=== PATIENT | female | born 1975 | race Caucasian/White ===

== ENCOUNTER 2021-08-26 00:52 | Inpatient (IN) | payer MEDICAID, SELFPAY ==
[2021-08-26] VITALS (7 sets, daily range): BP systolic 88–186; BP diastolic 56–119; PULSE 85–110; RESP 15–18; TEMP 36.1–37.2; O2SAT 96–100; BMI 22.4
--- NOTE | 2021-08-26 01:12 | ECG_ITS ---
[facility] Test Date: 2021-08-26 Pat Name: Irene Jimenez Department: Room: 152 Gender: Female Budget Technician: : 1975 Requested By: Mayela Lester Order Number: [id number] Sherron MD: Magnolia Poon M.D. Measurements Intervals Wood Rate: 95 P: 68 DC: 144 QRS: 44 QRSD: 77 T: 48 QT: 374 QTc: 472 Interpretive Statements SINUS RHYTHM INTERPRETATION BASED ON A DEFAULT AGE OF 40 YEARS No previous ECG available for comparison Electronically Signed On 08-26-2021 23:42:05 CDT by Magnolia Poon M.D. [id number]
[2021-08-26 01:17] LABS: Basophils # 0.1 10^3/uL (0.0-0.1); Basophils % 0.7 %; Eosinophils # 0.4 10^3/uL (0.0-0.8); Eosinophils % 2.1 %; Hematocrit 39.6 % (37.0-47.0); Hemoglobin 11.5 g/dL (11.5-15.3); Lymphocytes # 3.2 10^3/uL (0.8-4.8); Lymphocytes % 18.4 %; Mean Corpuscular Volume 72.3 fl (81-99); Mean Platelet Volume 9.9 fL (7.4-10.4); Monocytes # 1.7 10^3/uL (0.2-0.9); Monocytes % 9.9 %; Neutrophils % 68.4 %; Nucleated Red Blood Cells % 0 %; Platelet Count 462 10^3/cmm (130-400); Red Blood Count 5.48 10^6/uL (4.1-5.3); White Blood Count 17.1 10^3/uL (4.0-10.0)
[2021-08-26] MEDS: LORazepam 2 mg/mL INJ 1 mL IVP (01:30)
[2021-08-26] MEDS: sodium chloride 0.9% 1,000 ML 999 ML IV (01:30)
--- NOTE | 2021-08-26 01:30 | W.ED.PSYCH ---
HPI - Psych General: Chief Complaint: Psychiatric Symptoms Stated Complaint: MHE Time Seen by Provider: 08/26/21 00:52 Source: EMS Mode of arrival: EMS Limitations: no limitations History of Present Illness: HPI Narrative: 46-year-old female who states she has been having extreme anxiety. History is difficult to get from patient she is extremely anxious and having a panic attack. She threw herself on the ground and states that she believes there is a stream of energy trying to catch up with her that is going to kill her. She denies any drug use denies any suicidality. She denies any worsening improving factors. She has no chest pain she is tachycardic here. Review of Systems Const: Denies: fever(s), chills, body aches or change in appetite Eyes: Denies: blurry vision or eye discomfort ENMT: Denies: throat pain or dental pain Card: Reports: palpitations Resp: Denies: dyspnea GI: Denies: abdominal pain, nausea, vomiting or diarrhea : Denies: dysuria Musc: Denies: neck pain or back pain Skin/Breast: Denies: rash Neuro: Denies: headache(s) Psych: Reports: anxiety and paranoia Isidro/Lymph: Denies: easy bruising All/Imm: Denies: urticaria Physical Exam Const: COMMON NORMALS: patient oriented x3 GENERAL APPEARANCE: disheveled OTHER: Extremely anxious HENMT: COMMON NORMALS: normocephalic and atraumatic HEAD & SCALP: normocephalic and atraumatic Eye: COMMON NORMALS: Equal, round and reactive pupils present and EOMs intact bilaterally PUPIL: Yes Equal, round and reactive pupils present Neck/C-Spine: COMMON NORMALS: full ROM and supple Chest: COMMONS NORMALS: normal inspection of the chest and normal palpation of entire chest wall Resp: COMMON NORMALS: normal respiratory effort, No retractions, No use of accessory muscles and clear to auscultation bilaterally AUSCULTATION: clear to auscultation bilaterally Cardio: COMMON NORMALS: regular rhythm and No murmurs present (Cardio) RATE: tachycardic RHYTHM: regular rhythm GI: COMMON NORMALS: Normal to inspection, nondistended, normoactive bowel sounds present, Soft to palpation, non-tender and no masses PALPATION: Yes Soft to palpation Extremity: COMMON NORMALS: normal to inspection and full ROM Neuro: COMMON NORMALS: patient oriented x3, moves all extremities and no focal motor deficits Psych: COMMON NORMALS: Normal thought process present and cooperative THOUGHT PROCESS: Normal thought process present OTHER: Patient is extremely anxious and paranoid Skin: COMMON NORMALS: no rashes or lesions noted and no wounds GENERAL SKIN EXAM: no rashes or lesions noted Course Vital Signs: Vital signs: Vital Signs Temperature 97.0 F L 08/26/21 00:55 Pulse Rate 102 H 08/26/21 02:07 Respiratory Rate 16 08/26/21 02:07 Blood Pressure 122/86 08/26/21 02:07 Pulse Oximetry 99 08/26/21 02:07 MDM - Psych MDM Narrative: Medical decision making narrative: Patient presents here with acute psychosis believing a stream of light is trying to attack her and will kill her if against your patient was extremely anxious and paranoid when she got here. I did give her Ativan and Haldol which is helped calm her nerves she is resting comfortably currently patient's medically cleared does have a slightly elevated white count likely due to her methamphetamine. She has no signs of infections. I spoke to psychiatrist will admit. Lab Data: Labs: Lab Results 08/26/21 08/26/21 08/26/21 01:00 01:00 01:02 WBC RBC Hgb Hct MCV MCH MCHC RDW Plt Count MPV Neut % (Auto) Lymph % (Auto) Davison % (Auto) Eos % (Auto) Baso % (Auto) Neut # (Auto) Lymph # (Auto) Davison # (Auto) Eos # (Auto) Baso # (Auto) Nucleated RBC % (a uto) Nucleated RBCs # Sodium 137 mmol/L mmol/L (136-145) Potassium 3.7 mmol/L mmol/L (3.5-5.1) Chloride 100 mmol/L mmol/L (98-107) Carbon Dioxide 24 mmol/L mmol/L (22-29) Anion Gap 16.7 (5-19) BUN 10 mg/dL mg/dL (6-20) Creatinine 0.7 mg/dL mg/dL (0.5-0.9) GFR Calculation 90.1 mL/min mL/mi n (90-130) Glucose 99 mg/dL mg/dL (65-115) Calculated Osmolal ity 283 mOsm/kg L mOs m/kg (285-295) Calcium 9.8 mg/dL mg/dL (8.5-10.5) Total Bilirubin 0.3 mg/dL mg/dL (0.15-1.2) AST 19 U/L U/L (0-32) ALT 14 U/L U/L (0-33) Alkaline Phosphata se 79 IU/L IU/L (35-105) Troponin T Baselin e Total Protein 7.7 g/dL g/dL (6.6-8.7) Albumin 4.4 g/dL g/dL (3.5-5.2) Globulin 3.3 g/dL g/dL (1.3-4.6) Urine Color Yellow (Yellow) Urine Appearance Clear (CLEAR) Urine pH 6.5 (5-7) Ur Specific Gravit y 1.015 (1.005-1.030) Urine Protein Neg (Negative) Urine Glucose (UA) Norm (Normal) Urine Ketones Negative (Negative) Urine Blood 2+ H (Negative) Urine Nitrate Negative (Negative) Urine Bilirubin Neg (Negative) Urine Urobilinogen Norm mg/dL mg/dL (Negative) Ur Leukocyte Jana ase Negative (Negative) Urine RBC 0-4 /hpf H /hpf (0-2) Urine WBC Rare /hpf /hpf (0-5) Ur Squamous Epith Cells 5-10 /hpf H /hpf (0-5) Amorphous Sediment Not Reportable Urine Bacteria None /hpf /hpf (NONE) Salicylates < 0.3 mg/dL L mg/ dL (3-10) Urine Opiates Scre en Negative ng/mL ng /mL (Negative) Acetaminophen 10.8 ug/mL ug/mL (10-30) Ur Barbiturates Sc reen Negative ng/mL ng /mL (Negative) Ur Phencyclidine S crn Negative ng/mL ng /mL (Negative) Ur Amphetamines Sc reen Positive ng/mL H ng/mL (Negative) U Benzodiazepines Scrn Negative ng/mL ng /mL (Negative) Urine Cocaine Scre en Negative ng/mL ng /mL (Negative) U Marijuana (THC) Screen Negative ng/mL ng /mL (Negative) Ethyl Alcohol < 10 mg/dL mg/dL (0-10) 08/26/21 08/26/21 01:02 01:02 WBC 17.1 10^3/uL H 10 ^3/uL (4.0-10.0) RBC 5.48 10^6/uL H 10 ^6/uL (4.1-5.3) Hgb 11.5 g/dL g/dL (11.5-15.3) Hct 39.6 % % (37.0-47.0) MCV 72.3 fl L fl (81-99) MCH 21.0 pg L pg (28.0-34.0) MCHC 29.0 g/dL L g/dL (30.0-36.0) RDW 17.0 % H % (12.1-15.1) Plt Count 462 10^3/cmm H 10 ^3/cmm (130-400) MPV 9.9 fL fL (7.4-10.4) Neut % (Auto) 68.4 % % Lymph % (Auto) 18.4 % % Davison % (Auto) 9.9 % % Eos % (Auto) 2.1 % % Baso % (Auto) 0.7 % % Neut # (Auto) 11.70 10^3/uL H 1 0^3/uL (1.8-7.7) Lymph # (Auto) 3.2 10^3/uL 10^3/ uL (0.8-4.8) Davison # (Auto) 1.7 10^3/uL H 10^ 3/uL (0.2-0.9) Eos # (Auto) 0.4 10^3/uL 10^3/ uL (0.0-0.8) Baso # (Auto) 0.1 10^3/uL 10^3/ uL (0.0-0.1) Nucleated RBC % (a uto) 0 % % Nucleated RBCs # 0.0 /100WBC /100W BC Sodium Potassium Chloride Carbon Dioxide Anion Gap BUN Creatinine GFR Calculation Glucose Calculated Osmolal ity Calcium Total Bilirubin AST ALT Alkaline Phosphata se Troponin T Baselin e 6 ng/L ng/L (0-10) Total Protein Albumin Globulin Urine Color Urine Appearance Urine pH Ur Specific Gravit y Urine Protein Urine Glucose (UA) Urine Ketones Urine Blood Urine Nitrate Urine Bilirubin Urine Urobilinogen Ur Leukocyte Jana ase Urine RBC Urine WBC Ur Squamous Epith Cells Amorphous Sediment Urine Bacteria Salicylates Urine Opiates Scre en Acetaminophen Ur Barbiturates Sc reen Ur Phencyclidine S crn Ur Amphetamines Sc reen U Benzodiazepines Scrn Urine Cocaine Scre en U Marijuana (THC) Screen Ethyl Alcohol EKG Data^: EKG 1: Attestation: I personally reviewed and interpreted this EKG as follows: EKG interpretation date: 08/26/21 EKG interpretation time: 01:40 Interpretation: nsr hr [address] or t wave abnormalities qrs 77 qtc 427 Discharge Plan Discharge Patient Disposition: Admitted As Inpatient Clinical Impression: Acute psychosis, Acute anxiety Condition: Stable Coding Level of Care Code ED Upkeep Mechanic for Lali Fwd Exam Comprehensive
[2021-08-26 01:31] LABS: Specific Gravity, Urine 1.015 (1.005-1.030); Urine Appearance Clear (CLEAR); Urine Color Yellow (Yellow); pH Urine 6.5 (5-7)
[2021-08-26 01:32] LABS: Add Urine Microscopic? YES; Bilirubin Urine Neg (Negative); Blood Urine 2+ (Negative); Glucose Urine UA Norm (Normal); Ketones Urine Negative (Negative); Leukocyte Esterase Urine Negative (Negative); Nitrate Urine Negative (Negative); Protein Urine Neg (Negative); Urobilinogen Urine Norm (Negative)
[2021-08-26 01:38] LABS: Add Urine Culture? No; RBC Urine 0-4 /hpf (0-2); WBC Urine RARE /hpf (0-5)
[2021-08-26 01:39] LABS: Amphetamines Screen Urine Positive (Negative); Barbiturates Screen Urine Negative (Negative); Benzodiazepines Screen Urine Negative (Negative); Cocaine Screen Urine Negative (Negative); Opiate Screen Urine Negative (Negative); PCP Screen Urine Negative (Negative); THC Screen Urine Negative (Negative)
[2021-08-26 01:47] LABS: Acetaminophen 10.8 ug/mL (10-30); Alanine Aminotransferase 14 U/L (0-33); Albumin Level 4.4 g/dL (3.5-5.2); Alkaline Phosphatase 79 IU/L (35-105); Anion Gap 16.7 (5-19); Aspartate Amino Transferase 19 U/L (0-32); Blood Urea Nitrogen 10 mg/dL (6-20); Calcium 9.8 mg/dL (8.5-10.5); Carbon Dioxide 24 mmol/L (22-29); Chloride 100 mmol/L (98-107); Globulin 3.3 g/dL (1.3-4.6); Glomerular Filtration Rate 90.1 mL/min (90-130); Glucose 99 mg/dL (65-115); Osmolality Calculated 283 mOsm/kg (285-295); Potassium 3.7 mmol/L (3.5-5.1); Sodium 137 mmol/L (136-145); Total Bilirubin 0.3 mg/dL (0.15-1.2); Total Protein 7.7 g/dL (6.6-8.7)
[2021-08-26 01:57] LABS: Alcohol Level < 10 mg/dL (0-10); Salicylate < 0.3 mg/dL (3-10)
[2021-08-26] MEDS: haloperidol inj 5 mg/mL INJ 1 mL IM (02:02)
[2021-08-26 02:09] LABS: Troponin(5th) Baseline 6 ng/L (0-10)
--- NOTE | 2021-08-26 08:32 | PC.OT ---
OT evaluation orders received. OT evaluation held this date. RN states patient unable to participate due to sedation.
--- NOTE | 2021-08-26 11:57 | NPU.GN ---
[facility] Group Topic:My Favorite Things General Mood of Group: Irene did not attend group today. Irene was sleeping.
--- NOTE | 2021-08-26 12:21 | PM.NHP ---
Providers/Chief Complaint Admitting Physician: Cleve Nichole MD Chief Complaint: MHE HPI NPU History of Present Illness Irene Jimenez is a 46 year old female who was admitted with symptoms of anxiety and delusional fears with no known precipitating factor. She attributes her condition to an entity attached itself to May 2 or 3 months ago and has been bombarding me with kundalini energy. The ED note states: 46-year-old female who states she has been having extreme anxiety. History is difficult to get from patient she is extremely anxious and having a panic attack. She threw herself on the ground and states that she believes there is a stream of energy trying to catch up with her that is going to kill her. She denies any drug use denies any suicidality. She denies any worsening improving factors. She has no chest pain she is tachycardic here. The patient says that an entity has attached itself to her and has been tormenting her intermittently over the last 2 to 3 months. She feels it bombards her with big balls of kundalini energy whenever she makes it mad. She says that yesterday, I could hear it. It was right on my tail. It was very terrifying. She says that because of this, she has felt depressed and has often had trouble sleeping. She has had feelings of helplessness and hopelessness, but not worthlessness. She denies suicidal ideation. The patient denies using alcohol, but says she smoked meth for many years. She says she stopped 5 or 6 months ago, except for 1 time recently when she used a little bit on 1 occasion. She denies marijuana and other drug use. She says she quit smoking cigarettes over a year ago. Psychiatric history: She denies previous psychiatric treatment. Substance use history: As above. Family history: Patient denies mental health or addiction issues on either side of the family and denies suicide attempts or completions in the family. Psychosocial history: She was born and raised in [place], [place], where she graduated from high school. She has been and and has a 17-year-old son. 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 Legal history: No legal difficulties. Medical history: Denies any significant medical history. Meds NPU Home Medications Medication Instructions Recorded Confirmed Last Taken Type No Known Home Medications 08/26/21 08/26/21 Unknown History Allergies Allergy/AdvReac Type Severity Reaction Status Date / Time No Known Allergies Allergy Verified 08/26/21 00:55 Mental Status Exam MSE Comments: I met with the patient in her room with the door open, and she was dressed in hospital scrubs and appropriately groomed. She was fairly calm, cooperative, interactive, and made good eye contact. No psychomotor agitation or retardation Speech is at a regular rate and rhythm, normal volume, good articulation, not pressured Alert, oriented to person, place, time, and situation Attention and concentration were intact to exam Memory is adequate for the interview Mood is depressed and anxious. Affect is pleasant. She does not feel she is currently being attacked by the entity. Thought process is logical and goal-directed. Thought content: She has auditory and visual hallucinations and delusions as described above. These perceptual disturbances fit within her well organized and probably cultural belief system. No suicidal ideation or homicidal ideation. Insight and judgment are fair. Impulse control is fair as well. Vitals/I&O/Wt Last Vital Signs Temp 98.9 F 08/26/21 03:17 Pulse 91 08/26/21 03:17 Resp 15 08/26/21 05:48 BP 88/58 08/26/21 03:17 Pulse Ox 97 08/26/21 03:17 08/25/21 08/26/21 08/26/21 22:59 06:59 14:59 Intake Total 1000 / 1000 Balance 1000 / 1000 Weight last 48 hrs Weight 61.235 kg Data NPU : 08/26/21 01:02 08/26/21 01:02 A&P Additional A&P Information This is a 46 year old female who was admitted with symptoms of anxiety and delusional fears with no known precipitating factor. She attributes her condition to an entity attached itself to February 2 or 3 months ago and has been bombarding me with [employer] energy. RECOMMENDATION AND PLAN: 1. The patient agreed to start Abilify 5 mg daily to help with the experiences she has been having. 2. Continue every 15 minute checks for safety. 3. Encourage individual, group and milieu therapies. 4. Encourage sober living treatment after discharge at the highest level of care to which he is willing to commit. Involuntary Hold Information 96 Hour Hold: 96 Hour Involuntary Admission: Yes 96 Hour Hold Ending Date: 09/01/21 96 Hour Hold Ending Time: 02:11 Attestations NPU Medical Necessity Statement*: Psychiatric hospitalization is medically necessary to prevent access to lethal means, to reevaluate medication, and to coordinate a safe discharge. Patient will be in the hospital for over 2 midnights. Likely length of stay is 3 to 5 days. Coding Level of Care Code Acute Executive Team Leader for Lali Cm
[2021-08-26] MEDS: ARIPiprazole 10 mg Tablet 5 MG PO (15:36)
[2021-08-26] MEDS: trazodone 50 mg Tablet PO (23:41)
[2021-08-27 06:00] VITALS: BP 102/64; PULSE 83; RESP 16; TEMP 36.6; O2SAT 99
--- NOTE | 2021-08-27 07:55 | P.PN_ITS ---
Mental Status Exam MSE Comments: I met with the patient in her room with the door open, and she was dressed in hospital scrubs and appropriately groomed. She was fairly calm, cooperative, interactive, and made good eye contact. No psychomotor agitation or retardation Speech is at a regular rate and rhythm, normal volume, good articulation, not pressured Alert, oriented to person, place, time, and situation Attention and concentration were intact to exam Memory is adequate for the interview Mood is depressed and anxious. Affect is pleasant. She does not feel she is currently being attacked by the entity. Thought process is logical and goal-directed. Thought content: She has auditory and visual hallucinations and delusions as described above. These perceptual disturbances fit within her well organized an d probably cultural belief system. No suicidal ideation or homicidal ideation. Insight and judgment are fair. Impulse control is fair as well. Vitals/I&O/Wt Last Vital Signs Temp 97.9 F 08/27/21 06:00 Pulse 83 08/27/21 06:00 Resp 16 08/27/21 06:00 BP 102/64 08/27/21 06:00 Pulse Ox 99 08/27/21 06:00 Weight last 48 hrs Weight 61.235 kg Data NPU : 08/26/21 01:02 08/26/21 01:02 A&P Assessment and plan (1) Acute psychosis: Status: Acute (2) Acute anxiety: Status: Acute Additional A&P Information This is a 46 year old female who was admitted with symptoms of anxiety and delusional fears with no known precipitating factor. She attributes her condition to an entity attached itself to February 2 or 3 months ago and has been bombarding me with [employer] energy. RECOMMENDATION AND PLAN: 1. The patient agreed to start Abilify 5 mg daily to help with the experiences she has been having. 2. Continue every 15 minute checks for safety. 3. Encourage individual, group and milieu therapies. 4. Encourage sober living treatment after discharge at the highest level of care to which he is willing to commit. Involuntary Hold Information 96 Hour Hold: 96 Hour Involuntary Admission: Yes 96 Hour Hold Ending Date: 09/01/21 96 Hour Hold Ending Time: 02:11 Attestations NPU Medical Necessity Statement*: Psychiatric hospitalization is medically necessary to prevent access to lethal means, to reevaluate medication, and to coordinate a safe discharge. Likely length of stay is 1 to 3 days. Coding Level of Care Code Acute Proof Inspector for Chg Fwd Diagnoses Acute psychosis F23 Acute anxiety F41.9
[2021-08-27] MEDS: ARIPiprazole 10 mg Tablet 5 MG PO (09:48)
--- NOTE | 2021-08-27 12:19 | NPU.GN ---
[facility] Group Topic:Kristen General Mood of Group: Irene did not attend group today she was sleeping.
[2021-08-27 13:23] VITALS: BP 110/62; PULSE 70; RESP 16; TEMP 37.1; O2SAT 94
[2021-08-27] MEDS: acetaminophen 325 mg Tablet 650 MG PO (13:33)
--- NOTE | 2021-08-27 14:25 | P.DS_ITS ---
Diagnoses at Discharge Discharge Diagnosis (1) Acute psychosis: Status: Acute (2) Acute anxiety: Status: Acute Reason for Visit Reason for Visit: MHE Brief History: Irene Jimenez is a 46 year old female who was admitted with symptoms of anxiety and delusional fears with no known precipitating factor. She attributes her condition to an entity attached itself to May 2 or 3 months ago and has been bombarding me with kundalini energy. The ED note states: 46-year-old female who states she has been having extreme anxiety. History is difficult to get from patient she is extremely anxious and having a panic attack. She threw herself on the ground and states that she believes there is a stream of energy trying to catch up with her that is going to kill her. She denies any drug use denies any suicidality. She denies any worsening improving factors. She has no chest pain she is tachycardic here. The patient says that an entity has attached itself to her and has been tormenting her intermittently over the last 2 to 3 months. She feels it bombards her with big balls of kundalini energy whenever she makes it mad. She says that yesterday, I could hear it. It was right on my tail. It was very terrifying. She says that because of this, she has felt depressed and has often had trouble sleeping. She has had feelings of helplessness and hopelessness, but not worthlessness. She denies suicidal ideation. The patient denies using alcohol, but says she smoked meth for many years. She says she stopped 5 or 6 months ago, except for 1 time recently when she used a little bit on 1 occasion. She denies marijuana and other drug use. She says she quit smoking cigarettes over a year ago. Psychiatric history: She denies previous psychiatric treatment. Substance use history: As above. Family history: Patient denies mental health or addiction issues on either side of the family and denies suicide attempts or completions in the family. Psychosocial history: She was born and raised in [place], [place], where she graduated from high school. She has been and and has a 17-year-old son. 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 Legal history: No legal difficulties. Medical history: Denies any significant medical history. Hospital Course Hospital Course The patient was admitted to the neuropsychiatric unit for definitive treatment of these issues. On the unit she quickly acclimated to the individual, group and milieu therapies. There were some mild psychotic symptoms present initially which resolved with the Abilify being started. She said it helped her to relax. She was receptive to treatment team recommendations and showed modest improvement and was able to contract for safety prior to discharge. During the hospitalization, patient had routine laboratory studies which were within normal limits except for few outliers. Additionally there was a general medical evaluation which was also within normal limits and revealed no new acute processes. Discharge Summary: At the time of discharge, psychosis and lethality were denied. Mood and anxiety were well managed. Patient endorsed a plan to avoid all drugs of abuse and follow-up with the aftercare recommendations of the treatment team. Patient was evaluated and deemed to be absent credible lethality, and had achieved the maximum benefit from an inpatient hospitalization, so was discharged. Involuntary Hold Information 96 Hour Hold: 96 Hour Involuntary Admission: Yes 96 Hour Hold Ending Date: 09/01/21 96 Hour Hold Ending Time: 02:11 Mental Status Exam MSE Comments: The patient made good eye contact and was cooperative and open to the exam. No psychomotor agitation or retardation. Speech was had a regular rate and rhythm without pressure. Alert and oriented to person, place, time, and situation. Attention and concentration were intact to exam Memory was fairly good to exam. Mood is improved without depression and anxiety. Affect is brighter. Thought process: Logical and goal directed. No racing thoughts or flight of ideas. Thought content: Denies auditory and visual hallucinations. There are no delusions noted. No suicidal or homicidal ideation. Has future-oriented goals. Insight and judgment are improved and adequate. Discharge Data Vitals: Last Vital Signs Temp 98.7 F 08/27/21 13:23 Pulse 70 08/27/21 13:23 Resp 16 08/27/21 13:23 BP 110/62 08/27/21 13:23 Pulse Ox 94 08/27/21 13:23 Discharge Plan Discharge Patient Disposition: Home Condition: Stable Prescriptions: New aripiprazole 10 mg Tablet 5 mg PO DAILY 30 Days Qty: 30 RF: 0 Discharge Orders: Discharge Order (Routine); Ordered 08/27/21 Ordered By: Cleve Nichole Referrals: Elle Perry MD [Physician] - 09/02/21 9:40 am (Follow up appointment with Dr. Perry on 09/02/2021 at 9:40am. ) Discharge Diet: Usual diet Discharge Activity: Resume usual activity Patient Instructions: Opioid Safety Discharge Attestations NPU Time Spent in Discharge Care*: less than 30 min Specific Discharge Activities: Specific discharge activities: educating patient, discussing with showcase trimmer/social workers/dc planners, documenting/other paperwork and evaluating patient/reviewing data Status at Discharge: Cognitive status at discharge: cognitively intact , Behavioral status at discharge: cooperative , Functional status at discharge: independent ambulation Overall status at discharge: patient is back to baseline Coding Level of Care Code Acute Chg FW DC note Diagnoses Acute psychosis F23 Acute anxiety F41.9
[2021-08-27 14:38] VITALS: BP 110/62; PULSE 70; RESP 16; TEMP 37.1; O2SAT 94
== END 2021-08-27 14:56 | disposition home or self-care (01) | DRG 885 ==
LOC: ER 02:12 → NP 02:33
PROVIDERS: Admitting Provider Psychiatry & Neurology Child & Adolescent Psychiatry; Emergency Provider Emergency Medicine; Visit Provider Psychiatry & Neurology Child & Adolescent Psychiatry
DX: F23 Brief psychotic disorder (principal); F41.0 Panic disorder [episodic paroxysmal anxiety]; F41.9 Anxiety disorder, unspecified; F15.90 Other stimulant use, unspecified, uncomplicated; Z87.891 Personal history of nicotine dependence
CPT/HCPCS: 80053; 80306; 80307; 81001; 84484; 85025; 93005; 96365; 96372; 97165; 99285; J1630; J2060; J7030